=== PATIENT | male | born 1990 | race Caucasian/White ===

== ENCOUNTER 2019-04-16 11:44 | Emergency (ER) | payer OTHER, SELFPAY ==
[2019-04-16 13:03] VITALS: BP 115/74; PULSE 104; RESP 16; TEMP 37.1; O2SAT 99
--- NOTE | 2019-04-16 13:37 | ED.URI ---
HPI - URI/Sore Throat General Chief Complaint: Upper Respiratory Infection Stated Complaint: Cold symptoms/headache Time Seen by Provider: 04/16/19 13:31 Source: patient and RN notes reviewed Mode of arrival: ambulatory Limitations: no limitations History of Present Illness HPI Narrative: Patient presents today with a 2-day history of body aches, headache, congestion, fever, cough. Denies shortness of breath. He has been taking ibuprofen and NyQuil with mild relief. He does not smoke. He did not receive a flu vaccine. 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 ENT: Denies rhinorrhea, sore throat, or otalgia.+Congestion CARDIOVASCULAR: Denies chest pain, palpitations, or edema. RESPIRATORY: Denies dyspnea.+Cough GASTROINTESTINAL: Denies abdominal pain, nausea, vomiting, or diarrhea. GENITOURINARY: Denies dysuria or hematuria. SKIN: Denies rash, itching, or wounds. MUSCULOSKELETAL: Denies back pain, joint pain, or myalgia. NEUROLOGIC: Denies numbness, tingling, or weakness.+Headache PSYCH: Denies depression or anxiety. PMFSH Comments At time of signature, I have reviewed and agree with nursing past medical, surgical, social and family history unless otherwise noted. Please see nursing chart for further information. There is no relevant family history pertinent to the presenting complaint Exam Narrative: Exam Narrative: GENERAL: Mildly ill-appearing, well-nourished, and in no acute distress. HEAD: Normocephalic, atraumatic. EYES: EOMI. No redness or drainage. Conjunctivae normal. ENT: Mucous membranes pink and moist. Nares clear. No rhinorrhea. TMs normal bilaterally. Throat normalWith thick postnasal drainage. Uvula midline. NECK: Normal AROM. Supple. No lymphadenopathy. CHEST: No respiratory distress. Clear to auscultation. HEART: Regular rate and rhythm. No murmur appreciated. Normal peripheral pulses. EXTREMITIES: Normal range of motion. No edema. SKIN: Warm, dry, no rash. NEURO: No focal deficits. Alert and oriented x3. Gait steady. PSYCH: Normal affect. No signs of depression or anxiety. Course Vital Signs Vital signs: Vital Signs Temperature 98.7 F 04/16/19 13:03 Pulse Rate 104 H 04/16/19 13:03 Respiratory Rate 16 04/16/19 13:03 Blood Pressure 115/74 04/16/19 13:03 Pulse Oximetry 99 04/16/19 13:03 Temperature 98.7 F 04/16/19 13:03 Pulse Rate 104 H 04/16/19 13:03 Respiratory Rate 16 04/16/19 13:03 Blood Pressure 115/74 04/16/19 13:03 Pulse Oximetry 99 04/16/19 13:03 Reviewed MDM - URI/Sore Throat Differential Diagnosis Differential diagnosis: Likely upper respiratory infection, otitis media, sinusitis, viral infection and influenza Lab Data Attestation: I reviewed the patient's lab results. Labs: Influenza A Screen Positive Reference Range: Negative Influenza B Screen Negative Reference Range: Negative Critical Care Time Critical Care Time Critical Care Time: No Discharge Plan Discharge Clinical Impression: Influenza A Patient Disposition: Home, Self-Care Condition: Stable Instructions: Influenza (DC) Additional Instructions: You are positive for influenza A. You will be contagious for 3 more days. Please limit your exposure to other people. Continue [id number] medication for your symptoms. Follow-up with your doctor in 5 to 6 days if symptoms are not improving. Patient Language: Serbian Prescriptions: N
== END 2019-04-16 13:43 | disposition home or self-care (01) ==
PROVIDERS: Emergency Provider Nurse Practitioner; PCP Physician Assistant
DX: J10.1 Influenza due to other identified influenza virus with other respiratory manifestations (principal)
CPT/HCPCS: 87804; 99202; G0463